=== PATIENT | female | born 1955 ===

== ENCOUNTER 2022-04-07 16:35 | Emergency (ER) | payer OTHER ==
[~2022-04-07] VITALS: Ht 172.7 cm; Wt 96.2 kg
[~2022-04-07 16:35] MED LIST: PROZAC20 MG PO; TIAZAC300 MG PO; VASOTEC10 MG PO
== END 2022-04-07 20:18 | disposition home or self-care (01) ==
LOC: ER 16:35
DX: I16.9 Hypertensive crisis, unspecified (principal); I10 Essential (primary) hypertension; Z20.822 Contact with and (suspected) exposure to COVID-19

== ENCOUNTER 2022-11-02 09:35 | Emergency (ER) | payer OTHER ==
[~2022-11-02] VITALS: Ht 160 cm; Wt 90.7 kg
[2022-11-02] MEDS ORDERED: ROSUVASTATIN CA20 MG PO (09:58)
[2022-11-02] MEDS ORDERED: LISINOPRIL10 MG PO (09:58)
[2022-11-02] MEDS ORDERED: ST. JOSEPH ASPI81 M2 PO (09:58)
[2022-11-02] MEDS ORDERED: MOBIC7.5 MG PO (11:57)
== END 2022-11-02 12:04 | disposition home or self-care (01) ==
LOC: ER 09:35
DX: S62.109A Fracture of unspecified carpal bone, unspecified wrist, initial encounter for closed fracture (principal); I10 Essential (primary) hypertension; Z91.041 Radiographic dye allergy status